=== PATIENT | female | born 1980 | race Caucasian/White ===

== ENCOUNTER 2024-08-22 08:20 | Outpatient (CLI) | payer OTHER, SELFPAY | END 2024-08-22 08:21 | disposition home or self-care (01) | PROVIDERS: PCP Emergency Medicine; Visit Provider Emergency Medicine | DX: N92.0 Excessive and frequent menstruation with regular cycle (principal); D64.9 Anemia, unspecified; Z13.1 Encounter for screening for diabetes mellitus | CPT/HCPCS: 82728; 82947; 84443 ==

== ENCOUNTER 2024-09-04 10:26 | Outpatient (CLI) | payer OTHER, SELFPAY ==
[2024-09-06 12:46] LABS: HPV Source Cervical; HPV, High Risk by TMA Not Detected
== END 2024-09-04 10:27 | disposition home or self-care (01) ==
PROVIDERS: PCP Emergency Medicine; Visit Provider Emergency Medicine
DX: Z01.419 Encounter for gynecological examination (general) (routine) without abnormal findings (principal); N92.0 Excessive and frequent menstruation with regular cycle; Z13.6 Encounter for screening for cardiovascular disorders; Z12.4 Encounter for screening for malignant neoplasm of cervix
CPT/HCPCS: 80061; 87624; 87625; 88141; 88142

== ENCOUNTER 2024-09-05 16:17 | Outpatient (CLI) | payer OTHER, SELFPAY ==
--- NOTE | 2024-09-05 16:45 | CRLHL7_ITS ---
For Patients: As a result of the Century Cures Act, medical imaging exams and procedure reports are released immediately into your electronic medical record. You may view this report before your referring provider. If you have questions, please contact your health care provider. INDICATION: Menorrhagia TECHNIQUE: Transabdominal and transvaginal scanning was performed. Transvaginal scanning was performed to optimally evaluate the endometrium and adnexa. Ovarian blood flow was evaluated with color-flow and pulsed Doppler. COMPARISON: None. FINDINGS: The uterus is normal in size and shape. The uterus measures 8.9 x 4.7 x 5.3 cm. No myometrial mass is evident. The endometrial stripe is normal in thickness at 9 mm. The ovaries are normal in size and contain a number of follicles. The right ovary measures 2.3 x 1.3 x 1.1 cm and left 4.0 x 2.4 x 2.3 cm. Ovarian blood flow is demonstrated with color-flow and pulsed Doppler. No adnexal mass is evident. No free fluid is demonstrated. IMPRESSION: Negative pelvic ultrasound. Dictated by Lamont Harrington MD @ 09/06/2024 3:54:12 PM (Electronically Signed)
== END 2024-09-05 16:18 | disposition home or self-care (01) ==
LOC: US 16:18
PROVIDERS: PCP Emergency Medicine; Visit Provider Emergency Medicine
DX: N92.0 Excessive and frequent menstruation with regular cycle (principal)
CPT/HCPCS: 76830; 76856

== ENCOUNTER 2024-11-14 13:54 | Outpatient (CLI) | payer OTHER, SELFPAY ==
--- NOTE | 2024-11-14 14:00 | CRLHL7_ITS ---
For Patients: As a result of the Century Cures Act, medical imaging exams and procedure reports are released immediately into your electronic medical record. You may view this report before your referring provider. If you have questions, please contact your health care provider. BILATERAL SCREENING MAMMOGRAM WITH COMPUTER-AIDED DETECTION AND TOMOSYNTHESIS TECHNIQUE: CC and MLO views were obtained. These mammographic images have been obtained using full-field digital technique. These mammographic images were interpreted with the benefit of computer-aided detection. Breast Tomosynthesis was used in this interpretation. COMPARISON FILM: 01/05/18. FINDINGS: The breasts are heterogeneously dense, which may obscure small masses. IMPRESSION: There is no radiographic evidence for malignancy. ASSESSMENT: BI-RADS Category 2: Benign RECOMMENDATION: Routine screening mammogram in 1 year. A lay language report of this examination will be provided to the patient. Arnulfo Benz M.D. Diagnostic Radiologist [email or web address] SP/Dictated by: Arnulfo Benz MD @ 11/18/2024 9:51:00 AM (Electronically Signed)
== END 2024-11-14 13:55 | disposition home or self-care (01) ==
LOC: US 13:55
PROVIDERS: PCP Emergency Medicine; Visit Provider Emergency Medicine
DX: Z12.31 Encounter for screening mammogram for malignant neoplasm of breast (principal); R92.333 Mammographic heterogeneous density, bilateral breasts
CPT/HCPCS: 77063; 77067

== ENCOUNTER 2024-11-25 07:13 | Outpatient (CLI) | payer OTHER, SELFPAY ==
--- NOTE | 2024-11-25 08:24 | P.ANES_ITS ---
Anesthesia Charges Start Date/Time Anesthesia Start Date: 11/25/24 Anesthesia Start Time: 07:58 Stop Date/Time Anesthesia Stop Date: 11/25/24 Anesthesia Stop Time: 08:21 Coding CPT Codes CPT Codes: LICO LWR INTST SCR COLSC - 54462 ([id number]) QK - SALVAGE WINDER AND INSPECTOR 2-4 CNCRNT ANES PROC, QX - ETL ANALYST DEVELOPER SVC W/ MED DIRECTION, P1 - NORMAL HEALTHY PATIENT
--- NOTE | 2024-11-25 08:24 | W.ANESCHARGE ---
Anesthesia Charges Start Date/Time Anesthesia Start Date: 11/25/24 Anesthesia Start Time: 07:58 Stop Date/Time Anesthesia Stop Date: 11/25/24 Anesthesia Stop Time: 08:21 Coding CPT Codes CPT Codes: LICO LWR INTST SCR COLSC - 77753 ([id number]) QK - CONFERENCE COORDINATOR 2-4 CNCRNT ANES PROC, QX - LICENSED DISPENSING OPTICIAN SVC W/ MED DIRECTION, P1 - NORMAL HEALTHY PATIENT
--- NOTE | 2024-11-25 08:29 | P.ANES_ITS ---
Anesthesia Charges Start Date/Time Anesthesia Start Date: 11/25/24 Anesthesia Start Time: 07:58 Stop Date/Time Anesthesia Stop Date: 11/25/24 Anesthesia Stop Time: 08:21 Coding CPT Codes CPT Codes: LICO LWR INTST SCR COLSC - 06075 ([id number]) P1 - NORMAL HEALTHY PATIENT, QK - MENTAL TELEPATHIST 2-4 CNCRNT ANES PROC, QX - HYBRID DERIVATIVES TRADER SVC W/ MED DIRECTION
--- NOTE | 2024-11-25 08:29 | W.ANESCHARGE ---
Anesthesia Charges Start Date/Time Anesthesia Start Date: 11/25/24 Anesthesia Start Time: 07:58 Stop Date/Time Anesthesia Stop Date: 11/25/24 Anesthesia Stop Time: 08:21 Coding CPT Codes CPT Codes: LICO LWR INTST SCR COLSC - 94433 ([id number]) P1 - NORMAL HEALTHY PATIENT, QK - PASSENGER INTERLINE CLERK 2-4 CNCRNT ANES PROC, QX - URBAN RENEWAL MANAGER SVC W/ MED DIRECTION
== END 2024-11-25 07:14 | disposition home or self-care (01) ==
LOC: OP CLINIC 07:13
PROVIDERS: PCP Emergency Medicine; Visit Provider Surgery
DX: D50.8 Other iron deficiency anemias (principal); K64.8 Other hemorrhoids
CPT/HCPCS: 00811; 00812; 45378; J2704